=== PATIENT | male | born 1950 | race Caucasian/White ===

== ENCOUNTER 2017-08-16 08:46 | Outpatient (CLI) | payer OTHER, MEDICARE ==
--- NOTE | 2017-08-16 12:00 | Ultrasound Report ---
DATE OF SERVICE: 08/16/2017 AORTA SCREEN: 08/16/2017 CLINICAL INDICATION: Screening. TECHNIQUE: Real-time sonographic vascular imaging was performed by the cavalry scout through the aorta utilizing both color-flow and Doppler spectral analysis. Multiple business process representative static images were saved for review. FINDINGS: The abdominal aorta is normal in caliber, measuring 2.5 cm proximally, 2.0 cm in the mid portion, and 1.7 cm distally. The iliacs are normal in caliber. No free fluid is present. IMPRESSION: NO EVIDENCE OF ABDOMINAL AORTIC ANEURYSM. TD: 08/16/2017 12:59
== END 2017-08-16 08:47 | disposition home or self-care (01) ==
LOC: DI 08:46
PROVIDERS: ATTEND Internal Medicine
DX: Z13.6 Encounter for screening for cardiovascular disorders (principal)
CPT/HCPCS: 76706

== ENCOUNTER 2023-09-26 09:05 | Outpatient (CLI) | payer OTHER ==
--- NOTE | 2023-09-26 13:24 | CT Report ---
PROCEDURE: Lumbar Spine WO INDICATIONS: LOW BACK PAIN TECHNIQUE: Noncontrast 3 mm thick sections acquired from the T12 level to the sacrum. Sagittal and coronal refo rmats were constructed. Dedicated oblique axial images were performed through the disk levels. c Fo r radiation dose reduction, the following was used: automated exposure control, adjustment of mA and /or kV according to patient size. COMPARISON: None. FINDINGS: Image quality: Excellent. Bones: No acute vertebral body compression fractures. No suspicious lytic or blastic bony lesions. Central spinal caliber is of normal overall caliber. No pars defects. Mild dextroconvex scoliotic curvature is seen. This patient has transitional anatomy. For the purposes of this examination, the level with the tiny vestigial ribs is considered to be T12. By this imaging scheme, the L5 level is transitional and is r elatively highly sacralized. T11-T12: Prominent bridging anterior osteophytes are seen. No neural foraminal narrowing or central c anal narrowing can be seen. T12-L1: Normal in appearance. L1-L2: Mild loss of disc height is seen. Moderate disc bulge is seen, which is eccentric to the ri ght. Mild facet hypertrophy is seen. There is moderate left-sided and at least moderate right-sided neuroforaminal narrowing. Mild to moderate central canal narrowing is seen. L2-L3: Mild to moderate loss of disc height and disc signal can be seen. Moderate disc bulge is s een at this level. A superimposed central disc osteophyte protrusion is seen. Mild facet hypertrop hy is seen. There is moderate to severe left-sided and at least moderate right-sided neuroforaminal n arrowing. There is at least moderate central canal narrowing. L3-L4: At least moderate loss of disc height can be seen. Endplate irregularity and sclerosis can b e seen. Vacuum disc phenomenon is seen at this level. Moderate disc bulge is seen, with a central /right disc osteophyte protrusion. There is mild right-sided and at least moderate left-sided facet h ypertrophy. There is moderate right-sided and mild left-sided neuroforaminal narrowing. Moderate to s evere central canal narrowing is seen. L4-L5: At least moderate loss of disc height is seen. Vacuum disc phenomenon is seen at this level . Endplate irregularity and sclerosis can be seen. Moderate disc bulge is seen at this level. Ther e is a central disc osteophyte protrusion. Moderate bilateral neural foraminal narrowing is seen. M oderate central canal narrowing is seen. L5-S1: There is a transitional disc seen at this level. No significant neural foraminal or central canal narrowing can be seen. Soft tissues: No retroperitoneal masses or hematomas. Visualized aorta is normal in caliber. Ather osclerotic calcification is seen. Nonobstructing bilateral renal stones are seen. There is a water de nsity left renal cyst seen medially. IMPRESSION: Multiple levels of lumbar spine degenerative change can be seen, which are worst at L3-L4 and L4-5. 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 Additional findings: Nonobstructing bilateral kidney stones Water density left renal cyst Reviewed by: Jarret Lemons MD on 09/26/2023 12:23 PM AKST Approved by: Jarret Lemons MD on 09/26/2023 12:23 PM [place] Station ID: [id number]
== END 2023-09-26 09:06 | disposition home or self-care (01) ==
LOC: DI 09:05
PROVIDERS: ATTEND Registered Nurse
DX: M47.816 Spondylosis without myelopathy or radiculopathy, lumbar region (principal); N20.0 Calculus of kidney; N28.1 Cyst of kidney, acquired

== ENCOUNTER 2023-10-24 07:47 | Outpatient (CLI) | payer OTHER ==
--- NOTE | 2023-10-24 09:31 | MRI Report ---
PROCEDURE: Lumbar Spine WO INDICATIONS: LUMBAR RADICULOPATHY TECHNIQUE: Noncontrast sagittal T1 spin echo and T2 fast echo, sagittal STIR, axial T1 and T2 fast spin echo thr ough the lumbar spine. In cases with scoliosis, additional coronal T2 fast spin echo may be performe d. COMPARISON: CT lumbar spine 09/26/2023 FINDINGS: Image quality: Excellent. Alignment and Curvature: Transitional anatomy is redemonstrated with sacralization of the L5 vertebra l body. Mild dextrocurvature of the lumbar spine. Straightening of the normal lumbar lordosis. Bone Marrow: Multilevel Modic type II degenerative endplate changes. Marrow is otherwise of normal o verall signal. No acute vertebral body compression fractures. Spinal Cord: Conus medullaris terminates at the L1 level. Visualized cord demonstrates normal signa l and size. Paraspinous Soft Tissues: No paravertebral masses. Left renal simple appearing cyst. T12-L1: Minimal disc bulge. No central canal or neuroforaminal stenosis. L1-L2: Disc desiccation and posterior disc bulge. Facet arthropathy and thickening of ligamenta fl nilda. Mild epidural lipomatosis. Mild central canal stenosis. Mild bilateral neuroforaminal stenosis. L2-L3: Disc desiccation and height loss. Posterior disc bulge, asymmetric to the right. Facet arth ropathy and thickening of ligamenta flava. Epidural lipomatosis. Moderate central canal stenosis. Wil rowing of the right lateral recess with abutment of the descending right L3 nerve root. Moderate to s evere left and moderate right neuroforaminal stenosis. L3-L4: Disc desiccation and height loss. Diffuse disc bulge. Facet arthropathy and thickening of li gamentum flavum. Epidural lipomatosis. Moderate central canal stenosis. Narrowing of the left lateral recess with abutment of the descending left L4 nerve root. Moderate bilateral neuroforaminal stenosi s. L4-L5: Disc desiccation and height loss. Diffuse disc bulge with superimposed central disc protrusi on. Mild central canal stenosis. Facet arthropathy. Moderate bilateral neuroforaminal stenosis. L5-S1: Transitional level without central canal or neuroforaminal stenosis. IMPRESSION: 1.Multilevel degenerative changes of the lumbar spine as described above. 2.Moderate central canal stenosis at L2-L3 and L3-L4. 3.Moderate to severe left neuroforaminal stenosis at L2-L3. Multilevel moderate neuroforaminal stenos is. Reviewed by: Marquez Merida MD on 10/24/2023 9:30 AM PDT Approved by: Marquez Merida MD on 10/24/2023 9:30 AM PDT Station ID: [id number]
== END 2023-10-24 07:48 | disposition home or self-care (01) ==
LOC: DI 07:47
PROVIDERS: ATTEND Nurse Practitioner Family
DX: M47.26 Other spondylosis with radiculopathy, lumbar region (principal); M48.061 Spinal stenosis, lumbar region without neurogenic claudication

== ENCOUNTER 2023-11-24 15:22 | Outpatient (CLI) | payer OTHER ==
--- NOTE | 2023-11-25 17:53 | Ultrasound Report ---
PROCEDURE: Abdomen Limited INDICATIONS: MASS OF BACK TECHNIQUE: Real-time focused scanning was performed of the abdomen, with image documentation. COMPARISONS: None. FINDINGS: Sonographic images at the area of concern in the lower back demonstrate a focus of decreased echogeni city measuring 3.4 x 2.2 x 1.1 cm. There is no increased vascularity. IMPRESSION: Focal ill-defined mass within the subcutaneous fat of the back without increased vascularity. Overall appearance is suggestive of lipoma. However, it is somewhat more heterogeneous than typically seen. Recommend clinical correlation to palpation and further evaluation with MRI as indicated. Reviewed by: Radha Coy MD on 11/25/2023 5:52 PM PDT Approved by: Radha Coy MD on 11/25/2023 5:52 PM PDT Station ID: [id number]
== END 2023-11-24 15:23 | disposition home or self-care (01) ==
LOC: DI 15:22
PROVIDERS: ATTEND Nurse Practitioner Family
DX: R93.89 Abnormal findings on diagnostic imaging of other specified body structures (principal)